=== PATIENT | male | born 1990 | race Caucasian/White ===

== ENCOUNTER 2021-10-23 21:19 | Emergency (ER) | payer OTHER ==
[2021-10-23 21:59] LABS: HEMOGLOBIN 13.2 gm/dl (14.0-17.5); RED BLOOD COUNT 5.34 M/UL (4.20-5.50); WHITE BLOOD COUNT 12.3 K/UL (4.5-11.0)
[2021-10-23 22:54] LABS: BUN/CREATININE RATIO 16 (0-10)
== END 2021-10-23 23:45 | disposition home or self-care (01) ==
LOC: ER1 21:19
PROVIDERS: Physician Assistant
DX: R00.2 Palpitations (principal); R11.10 Vomiting, unspecified; T43.225A Adverse effect of selective serotonin reuptake inhibitors, initial encounter; K21.9 Gastro-esophageal reflux disease without esophagitis; Z88.1 Allergy status to other antibiotic agents
CPT/HCPCS: 71045; 80053; 82550; 82553; 83874; 84484; 85025; 93005; 99285